=== PATIENT | female | born 1950 | race Hispanic/Latino ===

== ENCOUNTER 2017-12-17 10:34 | Inpatient (IN) | payer OTHER, MEDICARE ==
[~2017-12-17] VITALS: Ht 165.1 cm; Wt 92.1 kg
[~2017-12-17 10:34] MED LIST: AMLO5TAB5 PO; ASPI-1146 PO; CETI10TA57 PO; DICY20TA11 PO; EZET10 PO; GLIM1TAB2 PO; LEVO100T12 PO; LOSA100T29 PO; METH500T6 PO; NITR0.4T SL; OMEP20CA10 PO; ROSU5TAB PO; [UNRECOGNIZED DRUG - OTHER] PO
[2017-12-17 11:16] LABS: BASOPHILS % (AUTO) 1.2 % (0.0-5.0); EOSINOPHILS % (AUTO) 0.2 % (0.0-8.0); LYMPHOCYTES % (AUTO) 16.9 % (21.0-51.0); MEAN CORPUSCULAR HGB CONC 34.3 g/dL (32.0-36.0); MEAN CORPUSCULAR VOLUME 84.5 fL (79-99); MONOCYTES % (AUTO) 12.2 % (3.0-13.0); NEUTROPHILS % (AUTO) 69.5 % (40.0-77.0); PLATELET COUNT (AUTO) 256 K/uL (130-400); RED BLOOD CELL COUNT(AUTO) 4.38 MIL/uL (4.00-5.50); RED CELL DISTRIBUTION WIDTH 12.7 % (11.0-15.5); WHITE BLOOD COUNT (AUTO) 4.5 K/uL (4.8-10.8)
[2017-12-17] MEDS ORDERED: ONDANSETRON HCL 4 MG/2 ML VIAL ONE (11:17)
[2017-12-17] MEDS ORDERED: SODIUM CHLORIDE 0.9% 1000ML 1,000 ML IV ONE ×2 (11:17→12:38)
[2017-12-17] MEDS ORDERED: LABETALOL HCL 5 MG/ML 20ML VIAL IV ONE (11:18)
[2017-12-17] MEDS ORDERED: ACETAMINOPHEN EXTRA STRENGTH 500 MG TABLET ONE (11:18)
[2017-12-17 11:19] LABS: CARBON DIOXIDE 22 mmol/L (21-32); CHLORIDE 102 mmol/L (101-111); GLOMERULAR FILTR. RATE CALC 26 mL/min (>60); GLUCOSE,RANDOM 165 mg/dL (70-105); SODIUM SERUM 134 mmol/L (136-145); UREA NITROGEN, BLOOD 28 mg/dL (7-18)
[2017-12-17] MEDS ORDERED: MORPHINE SULFATE 4 MG/1ML SYG ONE (11:19)
[2017-12-17 11:22] LABS: CRP QUANTITATIVE 45.8 mg/L (0.00-9.0)
[2017-12-17 11:28] LABS: INR 0.99 (0.85-1.15); PARTIAL THROMBOPLASTIN TIME 28.4 SEC (26.3-35.5); PROTHROMBIN TIME 10.4 SEC (9.6-11.6)
[2017-12-17 11:36] LABS: ALANINE AMINOTRANSFERASE 66 U/L (12-78); ALBUMIN 3.9 g/dL (3.5-5.0); ASPARTATE AMINOTRANSFERASE 65 U/L (10-37); BILIRUBIN,TOTAL 0.3 mg/dL (0.2-1.0); CREATINE KINASE MB 2.2 ng/mL (0.5-3.6); MYOGLOBIN 368 ng/mL (10-92); TOTAL PROTEIN, SERUM 8.4 g/dL (6.0-8.3); TROPONIN I < 0.04 ng/mL (0.00-0.06)
[2017-12-17 11:38] LABS: CREATINE KINASE, TOTAL 497 U/L (21-232)
[2017-12-17 11:48] LABS: APPEARANCE,URINE Clear (CLEAR); BILIRUBIN,URINE Negative (NEGATIVE); COLOR,URINE Dark Yellow (YELLOW); GLUCOSE, URINE (UA) Negative (NEGATIVE); KETONES,URINE Negative (NEGATIVE); LEUKOCYTE ESTERASE ,URINE Negative (NEGATIVE); NITRATE,URINE Negative (NEGATIVE); OCCULT BLOOD,URINE Negative (NEGATIVE); PH,URINE 6.5 (5.0-8.0); PROTEIN,URINE Negative (NEGATIVE); UROBILINOGEN,URINE 0.2 mg/dL (0.2-1.0)
[2017-12-17] MEDS ORDERED: CEFTRIAXONE SODIUM 2 GM VIAL ONE (11:49)
[2017-12-17] MEDS ORDERED: SODIUM CHLORIDE 0.9% 100 ML IV ONE (11:49)
[2017-12-17 11:58] LABS: BACTERIA,URINE Rare /HPF (None Seen); RBC,URINE 0-1 /HPF (0-1); WBC,URINE 0-1 /HPF (0-1)
[2017-12-17 11:59] LABS: SQUAMOUS EPITHELIAL CELL,UR Rare /HPF (0-2)
[2017-12-17] MEDS ORDERED: FAMOTIDINE/PF 20 MG/2 ML VIAL IV ONE (12:39)
[2017-12-17] MEDS: SODIUM CHLORIDE 0.9% 1000ML 1,000 ML IV SCH (16:15)
[2017-12-17] MEDS ORDERED: ACETAMINOPHEN 325 MG TAB ONE (17:58)
[2017-12-18] MEDS ORDERED: MORPHINE SULFATE 4 MG/1ML SYG ONE (00:58)
[2017-12-18] MEDS ORDERED: ACETAMINOPHEN 325 MG TAB ONE ×2 (01:07→09:42)
[2017-12-18] MEDS: SODIUM CHLORIDE 0.9% 1000ML 1,000 ML IV SCH ×2 (05:35→18:55)
[2017-12-18 05:36] LABS: HEMATOCRIT 33.7 % (36-48); MEAN CORPUSCULAR HEMOGLOBIN 29.3 pg (27.0-33.0); MEAN CORPUSCULAR HGB CONC 34.5 g/dL (32.0-36.0); MEAN CORPUSCULAR VOLUME 84.9 fL (79-99); PLATELET COUNT (AUTO) 250 K/uL (130-400); RED BLOOD CELL COUNT(AUTO) 3.97 MIL/uL (4.00-5.50); RED CELL DISTRIBUTION WIDTH 12.8 % (11.0-15.5); WHITE BLOOD COUNT (AUTO) 6.1 K/uL (4.8-10.8)
[2017-12-18 05:44] LABS: CREATININE 1.7 mg/dL (0.5-1.5)
[2017-12-18] MEDS ORDERED: FAMOTIDINE 20MG TAB 20 MG TAB ONE (07:36)
[2017-12-18] MEDS ORDERED: ENOXAPARIN SODIUM 30 MG/0.3 ML SQ ONE (07:37)
[2017-12-18] MEDS: ENOXAPARIN SODIUM 30 MG/0.3 ML SQ SCH ×2 (09:00→20:09)
[2017-12-18] MEDS ORDERED: CEFTRIAXONE SODIUM 1 GM IVP SCH (09:00)
[2017-12-18] MEDS: FAMOTIDINE 20MG TAB 20 MG TAB PO SCH (09:00)
[2017-12-18 10:15] VITALS: BP 162/88
[2017-12-18 11:00] VITALS: BP 141/81
[2017-12-18] MEDS ORDERED: LEVOFLOXACIN 500 MG/D5W 100 ML 100 ML IV SCH (11:00)
[2017-12-18] MEDS: METRONIDAZOLE 500MG/100ML BAG 100 ML IV SCH ×2 (12:36→20:09)
[2017-12-18 15:00] VITALS: BP 146/89
[2017-12-18] MEDS: ACETAMINOPHEN 325 MG TAB PO PRN (15:51)
[2017-12-18 20:00] VITALS: BP_SYST 128; BP_SYST 137; BP_DIAS 68; BP_DIAS 80
[2017-12-18] MEDS: MORPHINE SULFATE 4 MG/1ML SYG IV PRN (20:14)
[2017-12-18 23:52] VITALS: BP 142/84
[2017-12-19] MEDS: SODIUM CHLORIDE 0.9% 1000ML 1,000 ML IV SCH ×2 (01:30→21:36)
[2017-12-19] MEDS: METRONIDAZOLE 500MG/100ML BAG 100 ML IV SCH ×2 (03:07→12:42)
[2017-12-19 04:00] VITALS: BP 152/87
[2017-12-19] MEDS: ACETAMINOPHEN 325 MG TAB PO PRN (04:48)
[2017-12-19 05:16] LABS: MEAN CORPUSCULAR HEMOGLOBIN 28.8 pg (27.0-33.0); MEAN CORPUSCULAR HGB CONC 33.8 g/dL (32.0-36.0); MEAN CORPUSCULAR VOLUME 85.2 fL (79-99); PLATELET COUNT (AUTO) 258 K/uL (130-400); RED BLOOD CELL COUNT(AUTO) 3.88 MIL/uL (4.00-5.50); RED CELL DISTRIBUTION WIDTH 12.8 % (11.0-15.5); WHITE BLOOD COUNT (AUTO) 5.5 K/uL (4.8-10.8)
[2017-12-19 05:24] LABS: CREATININE 1.6 mg/dL (0.5-1.5); MAGNESIUM 1.8 mg/dL (1.80-2.40); POTASSIUM 4.3 mmol/L (3.5-5.1)
[2017-12-19 07:00] VITALS: BP 141/82
[2017-12-19] MEDS: ENOXAPARIN SODIUM 30 MG/0.3 ML SQ SCH ×2 (09:54→21:30)
[2017-12-19] MEDS: FAMOTIDINE 20MG TAB 20 MG TAB PO SCH (09:55)
[2017-12-19] MEDS: MORPHINE SULFATE 4 MG/1ML SYG IV PRN ×2 (09:56→23:25)
[2017-12-19 11:00] VITALS: BP 167/87
[2017-12-19] MEDS ORDERED: ISOS30TA6 PO (12:38)
[2017-12-19] MEDS ORDERED: LABE100T5 PO (12:38)
[2017-12-19] MEDS ORDERED: LEVO100T12 PO (12:38)
[2017-12-19] MEDS ORDERED: ASPI-1197 PO (12:38)
[2017-12-19] MEDS ORDERED: EZET10TA26 PO (12:38)
[2017-12-19] MEDS ORDERED: ROSU5TAB11 PO (12:38)
[2017-12-19] MEDS ORDERED: MIRT7.5T11 PO (12:38)
[2017-12-19] MEDS ORDERED: ICOS1CAP PO (12:38)
[2017-12-19] MEDS ORDERED: FENO135C4 PO (12:38)
[2017-12-19] MEDS ORDERED: GABA-531 PO (12:38)
[2017-12-19] MEDS ORDERED: PANT40TA25 PO (12:38)
[2017-12-19] MEDS ORDERED: GLIM1TAB2 PO (12:38)
[2017-12-19] MEDS ORDERED: ONDANSETRON HCL 4 MG/2 ML VIAL ONE (13:42)
[2017-12-19] MEDS ORDERED: ONDANSETRON HCL 4 MG/2 ML VIAL IVP PRN (13:45)
[2017-12-19 15:00] VITALS: BP 162/97
[2017-12-19] MEDS ORDERED: KETOROLAC TROMETHAMINE 30MG/ML IV SCH (16:30)
[2017-12-19 17:18] LABS: THYROID STIMULATING HORMONE 2.81 uIU/mL (0.36-3.74)
[2017-12-19] MEDS: LABETALOL HCL 100 MG TABLET PO SCH ×2 (18:21→21:00)
[2017-12-19 19:55] VITALS: BP 141/86
[2017-12-19] MEDS ORDERED: GABAPENTIN 300 MG CAPSULE PO SCH (21:00)
[2017-12-19] MEDS ORDERED: ATORVASTATIN CALCIUM 10 MG TABLET PO SCH (21:00)
[2017-12-19] MEDS ORDERED: MIRTAZAPINE 15 MG TABLET PO SCH (21:00)
[2017-12-19] MEDS: ICOSAPENT ETHYL 2 GM PO SCH (21:00)
[2017-12-19] MEDS: GLIMEPIRIDE 2 MG TABLET PO SCH (21:29)
[2017-12-19 23:45] VITALS: BP 130/75
[2017-12-20 04:00] VITALS: BP 122/61
[2017-12-20 07:43] VITALS: BP 138/76
[2017-12-20] MEDS ORDERED: FENOFIBRIC ACID 135 MG PO SCH (08:00)
[2017-12-20] MEDS ORDERED: ISOSORBIDE MONO 30MG TAB SR PO SCH (09:00)
[2017-12-20] MEDS ORDERED: ASPIRIN 81MG TAB.CHEW PO SCH (09:00)
[2017-12-20] MEDS ORDERED: LOSARTAN 100 MG TABLET PO SCH (09:00)
[2017-12-20] MEDS: ICOSAPENT ETHYL 2 GM PO SCH (09:00)
[2017-12-20] MEDS ORDERED: LEVOTHYROXINE 100 MCG TABLET PO SCH (09:00)
[2017-12-20] MEDS ORDERED: PANTOPRAZOLE SODIUM 40 MG TABLET.DR PO SCH (09:00)
[2017-12-20] MEDS ORDERED: EZETIMIBE 10 MG TAB PO SCH (09:00)
[2017-12-20] MEDS: LABETALOL HCL 100 MG TABLET PO SCH (09:11)
[2017-12-20] MEDS: ACETAMINOPHEN 325 MG TAB PO PRN (09:11)
[2017-12-20] MEDS: GLIMEPIRIDE 2 MG TABLET PO SCH (09:12)
[2017-12-20] MEDS: ENOXAPARIN SODIUM 30 MG/0.3 ML SQ SCH (09:12)
[2017-12-20] MEDS: FAMOTIDINE 20MG TAB 20 MG TAB PO SCH (09:13)
[2017-12-20 11:21] VITALS: BP 119/71
[2017-12-20 16:15] VITALS: BP 166/76
[2017-12-25 15:26] LABS: ROCKY MT SPOTTED FEVER IGG <1:64 (Neg:<1:64); TYPHUS FEVER AB IGG <1:64 (Neg:<1:64)
== END 2017-12-20 18:48 | disposition home or self-care (01) | DRG 391 ==
LOC: EDH 10:34 → EDHIP 13:00 → 4CH 12-18 09:35
PROVIDERS: ADMIT Family Medicine; ATTEND Family Medicine
DX: K52.9 Noninfective gastroenteritis and colitis, unspecified (principal); N17.0 Acute kidney failure with tubular necrosis; N39.0 Urinary tract infection, site not specified; E86.0 Dehydration; E11.9 Type 2 diabetes mellitus without complications; I10 Essential (primary) hypertension; E78.5 Hyperlipidemia, unspecified; E03.9 Hypothyroidism, unspecified; F41.9 Anxiety disorder, unspecified; E66.9 Obesity, unspecified; Z83.3 Family history of diabetes mellitus; Z82.49 Family history of ischemic heart disease and other diseases of the circulatory system; Z79.84 Long term (current) use of oral hypoglycemic drugs; Z79.899 Other long term (current) drug therapy; Z68.33 Body mass index [BMI] 33.0-33.9, adult
CPT/HCPCS: 36415; 70551; 71045; 74176; 80048; 80053; 81001; 82550; 82553; 82948; 83605; 83690; 83735; 83874; 84439; 84443; 84481; 84484; 85025; 85027; 85610; 85730; 86000; 86038; 86140; 86215; 86235; 86431; 86757; 87040; 87088; 87507; 87633; 87804; 87880; 93005; 99291; J0696; J1650; J1885; J1956; J2270; J2405; J3490; J7030

== ENCOUNTER 2021-07-17 16:22 | Emergency (ER) | payer OTHER, MEDICARE ==
[~2021-07-17] VITALS: Ht 152.4 cm; Wt 72.6 kg
[~2021-07-17 16:22] MED LIST changes: +ASPI-1197 PO; -DICY20TA11 PO; +DICY20TA3 PO; -EZET10 PO; +EZET10TA13 PO; +EZET10TA48 PO; +FENO135C4 PO; +GABA-531 PO; +GLIM1TAB18 PO; -GLIM1TAB2 PO; +ICOS1CAP PO; +ISOS30TA92 PO; +LABE100T5 PO; -LOSA100T29 PO; +LOSA100T58 PO; +METH-811 PO; -METH500T6 PO; +MIRT7.5T11 PO; -OMEP20CA10 PO; +OMEP20CA12 PO; +PANT40TA54 PO; +ROSU5TAB12 PO
[2021-07-17] MEDS ORDERED: HYDROCODONE/ACETAMINOPHEN 5/325 MG TAB PO ONE (16:30)
[2021-07-17] MEDS ORDERED: KETOROLAC 30MG VIAL (30MG/ML) IM ONE (16:30)
[2021-07-17] MEDS ORDERED: CYCL10TA16 PO (17:14)
[2021-07-17] MEDS ORDERED: DICL20GE TP (17:14)
[2021-07-17 17:33] VITALS: BP 158/87
== END 2021-07-17 17:37 | disposition home or self-care (01) ==
LOC: EDH 16:22
DX: M25.552 Pain in left hip (principal); M25.511 Pain in right shoulder; M54.50 Low back pain, unspecified; E11.9 Type 2 diabetes mellitus without complications; E78.00 Pure hypercholesterolemia, unspecified; I10 Essential (primary) hypertension; Z79.1 Long term (current) use of non-steroidal anti-inflammatories (NSAID); Z79.82 Long term (current) use of aspirin; Z79.899 Other long term (current) drug therapy
CPT/HCPCS: 72100; 73030; 73502

== ENCOUNTER 2024-03-04 09:25 | Emergency (ER) | payer OTHER, MEDICARE ==
[~2024-03-04] VITALS: Ht 162.6 cm; Wt 90.7 kg
[~2024-03-04 09:25] MED LIST changes: +ACET-2079 PO; +CYCL10TA16 PO; +DICL20GE TP; -EZET10TA13 PO; +EZET10TA81 PO; -GLIM1TAB18 PO; +GLIM1TAB56 PO; -LABE100T5 PO; +LABE100T7 PO; -LOSA100T58 PO; +LOSA100T59 PO; +METH4TAB3 PO; -ROSU5TAB12 PO; +ROSU5TAB43 PO
[2024-03-04 09:40] VITALS: BP 172/90; PULSE 73; RESP 17; O2SAT 96
[2024-03-04] MEDS: ONDANSETRON 4MG INJ IVP ONE (10:34)
[2024-03-04] MEDS: MORPHINE 2 MG SYG IM ONE (10:35)
== END 2024-03-04 11:03 | disposition home or self-care (01) ==
LOC: EDH 09:25
DX: M79.605 Pain in left leg (principal); M79.604 Pain in right leg; E11.40 Type 2 diabetes mellitus with diabetic neuropathy, unspecified; G89.29 Other chronic pain; M54.50 Low back pain, unspecified; E11.22 Type 2 diabetes mellitus with diabetic chronic kidney disease; I12.9 Hypertensive chronic kidney disease with stage 1 through stage 4 chronic kidney disease, or unspecified chronic kidney disease; N18.9 Chronic kidney disease, unspecified; E78.00 Pure hypercholesterolemia, unspecified; F41.9 Anxiety disorder, unspecified; M19.90 Unspecified osteoarthritis, unspecified site; Z79.82 Long term (current) use of aspirin; Z79.899 Other long term (current) drug therapy
CPT/HCPCS: 99284; 96374; 96372; J2270; J2405

== ENCOUNTER → 2024-10-23 | Outpatient (CLI) | payer OTHER, MEDICARE ==
[~2024-10-23] MED LIST changes: -ROSU5TAB43 PO; +ROSU5TAB51 PO
--- NOTE | 2024-10-23 11:50 | HMCIMG ---
CT ABDOMEN/PELVIS W/O CONTRAST HISTORY: Lower abdominal pain COMPARISON: None TECHNIQUE: Multiple sequential axial images of the abdomen and pelvis were obtained from the dome of the diaphragm through symphysis pubis. Patient was not given contrast through intravenous route. Oral contrast was given. FINDINGS: No pleural effusion is seen bilaterally. There is no evidence of parenchymal disease or pulmonary nodule of the visualized lower lungs. Postop changes are seen with orthopedic fixation plates and screws at T12, L1 and L2. Compression fracture is seen at L1 with 80% loss of height. A 1 anterolisthesis is seen at the L4-5 level. Degenerative changes of the thoracolumbar spine are present. The heart is not enlarged. No bowel obstruction is seen. The liver, spleen, adrenal glands and pancreas are unremarkable. There is no evidence of hydronephrosis bilaterally. No evidence of renal stone is seen. Fecal material is seen in the colon. There are normal size retroperitoneal and mesenteric lymph nodes. No ascites is seen. Atherosclerotic changes are present. Pelvic sidewalls are symmetric bilaterally. Bladder is moderately distended. Degenerative changes with osteophytes formations are seen in the pubic symphysis more on the left. IMPRESSION: 1. No acute findings. CT was performed with one or more following dose reduction techniques: automated exposure control, adjustment of the mA and kv according to patient's size, or use of a iterative reconstruction technique.
== END | disposition home or self-care (01) ==
LOC: RAH 08:56
PROVIDERS: ATTEND Internal Medicine Gastroenterology
DX: S32.010A Wedge compression fracture of first lumbar vertebra, initial encounter for closed fracture (principal); R10.30 Lower abdominal pain, unspecified; M43.16 Spondylolisthesis, lumbar region; I70.0 Atherosclerosis of aorta; M47.815 Spondylosis without myelopathy or radiculopathy, thoracolumbar region; X58.XXXA Exposure to other specified factors, initial encounter; Y93.89 Activity, other specified; Y92.89 Other specified places as the place of occurrence of the external cause; Y99.8 Other external cause status
CPT/HCPCS: 74176

== ENCOUNTER → 2025-03-11 | Outpatient (CLI) | payer OTHER, MEDICARE ==
[~2025-03-11] MED LIST changes: -AMLO5TAB5 PO; +AMLO5TAB6 PO
--- NOTE | 2025-03-12 08:41 | HMCIMG ---
EXAMINATION: ULTRASOUND OF THE ABDOMEN (LIMITED) WITH COLOR DOPPLER. CLINICAL HISTORY: Pain. COMPARISON: CT abdomen and pelvis without contrast dated 10/23/2024. TECHNIQUE: Real-time grayscale ultrasound images of the abdomen. In addition, color Doppler is medically necessary to perform in order to evaluate vascularity and blood flow. FINDINGS: Liver: Normal in caliber, the right hepatic lobe measures 13.3 cm in the craniocaudal dimension. There is increased echogenicity of the hepatic parenchyma. There is no focal hepatic abnormality or intrahepatic biliary ductal dilatation. There is normal spectral Doppler of the main portal vein. Gallbladder: Within normal limits with normal wall thickness (0.3 cm). No hyperemia or pericholecystic free fluid. There is no cholelithiasis. There is ring down artifact. Common bile duct is normal in caliber, measuring 0.4 cm. Pancreas: Normal in caliber and echotexture. No calcification or dilated pancreatic duct. The right kidney is normal in caliber, the right kidney measures 9.4 x 4.6 x 3.8 cm in craniocaudal, AP, and transverse dimensions respectively. There is normal renal cortical thickness, and cortical echogenicity. There is no renal calculus or hydronephrosis. IMPRESSION: Hepatic steatosis. Ring down artifact in the gallbladder may reflect focal adenomyomatosis. In prior CT study gallbladder adenomyomatosis is not visualized. /[place]
== END | disposition home or self-care (01) ==
LOC: RAH 07:36
PROVIDERS: ATTEND Surgery
DX: K76.0 Fatty (change of) liver, not elsewhere classified (principal); R10.11 Right upper quadrant pain; K82.9 Disease of gallbladder, unspecified; R10.9 Unspecified abdominal pain
CPT/HCPCS: 76705

== ENCOUNTER → 2025-03-17 | Outpatient (CLI) | payer OTHER, MEDICARE ==
[~2025-03-17] MED LIST changes: -EZET10TA48 PO; +EZET10TA80 PO
--- NOTE | 2025-03-20 08:10 | HMCIMG ---
Exam: Hepatobiliary scan. Comparison: None. History: Right upper quadrant abdominal pain. Findings: After administration of 5.6 mCi of technetium 99 Mebrofenin IV, images are obtained over the next 60 min at 1-minute intervals. This demonstrates visualization of activity in the liver, which proceeds into the biliary tree, gallbladder, and proximal small bowel. Following the administration of 2.71 mcg Sincalide IV over 30 min with additional images 1at 20 sec increments, was performed for 30 min. The Gallbladder ejection fraction is 92% (abnormal < 38%). Symptoms of administration: None. IMPRESSION: Unremarkable hepatobiliary scan with a normal gallbladder ejection fraction of 92%. /[place]
== END | disposition home or self-care (01) ==
LOC: RAH 07:09
PROVIDERS: ATTEND Surgery
DX: R10.11 Right upper quadrant pain (principal)
CPT/HCPCS: 78227; A9537

== ENCOUNTER 2025-05-08 06:40 | Observation (INO) | payer OTHER, MEDICARE ==
[2025-05-04 10:16] VITALS: BP 136/56; PULSE 67; RESP 18; TEMP 97.3
--- NOTE | 2025-05-04 10:21 | EKG ---
[facility] Test Date: 2025-05-04 Test Time: 10:00:54 Pat Name: ANGELO GREEN Department: [facility] Room: Gender: F Technology Intern: [id number] : 1950 Requested By: JIMY GONZALES Order Number: [id number] Reading MD: Arabella Balbuena Measurements Intervals [place] Rate: 65 P: 38 [place]: 188 QRS: -23 QRSD: 96 T: 61 QT: 396 QTc: 413 Interpretive Statements Sinus rhythm Compared to ECG 12/17/2017 10:58:17 No significant changes Electronically Signed On 05-04-2025 12:11:00 CDT by Arabella Balbuena Please click the below link to view image of tracing.
[2025-05-04 10:24] LABS: IMMATURE GRANULOCYTE ABSOLUTE 0.02 K/uL (0-1); NUCLEATED RED BLOOD CELLS 0.0 % (0.0-0.19); PLATELET COUNT (AUTO) 292 K/uL (130-400); RED BLOOD CELL COUNT(AUTO) 4.42 MIL/uL (4.00-5.50); RED CELL DISTRIBUTION WIDTH 12.8 % (11.0-15.5); WHITE BLOOD COUNT (AUTO) 5.5 K/uL (4.8-10.8)
[2025-05-04 10:35] LABS: INR 0.98 (0.85-1.15)
[2025-05-04 10:36] LABS: APPEARANCE,URINE CLEAR (CLEAR); GLUCOSE, URINE (UA) >=1000 mg/dL (NEGATIVE); LEUKOCYTE ESTERASE ,URINE NEGATIVE Leu/uL (NEGATIVE); NITRATE,URINE NEGATIVE (NEGATIVE); OCCULT BLOOD,URINE NEGATIVE (NEGATIVE)
[2025-05-04 10:39] LABS: ASPARTATE AMINOTRANSFERASE 22.0 U/L (10-37); CREATININE 1.6 mg/dL (0.5-1.0); GLOMERULAR FILTR. RATE CALC 33.0 mL/min (>90); GLUCOSE,RANDOM 146.0 mg/dL (70-105); SODIUM SERUM 138.0 mmol/L (136-145); TOTAL PROTEIN, SERUM 7.2 g/dL (6.0-8.3); UREA NITROGEN, BLOOD 38.0 mg/dL (7-18)
[2025-05-04 11:22] LABS: ADD UA MICROSCOPIC YES; SQUAMOUS EPITHELIAL CELL,UR Few /HPF (0-2)
[~2025-05-08] VITALS: Ht 162.6 cm; Wt 87.1 kg
[2025-05-08] VITALS (25 sets, daily range): BP systolic 113–179; BP diastolic 45–95; PULSE 60–101; RESP 13–18; TEMP 97–98.6; O2SAT 95–97
[~2025-05-08 06:40] MED LIST changes: -ACET-2079 PO; -ASPI-1146 PO; -CYCL10TA16 PO; -DICL20GE TP; +LABE-9 PO; -LABE100T7 PO; -LOSA100T59 PO; +MELO-106 PO; -METH-811 PO; -METH4TAB3 PO; -NITR0.4T SL; -OMEP20CA12 PO; -ROSU5TAB PO; -[UNRECOGNIZED DRUG - OTHER] PO
[2025-05-08] MEDS: 0.9%NACL 1000ML 1,000 ML IV ONE (06:51)
[2025-05-08] MEDS: INDOCYANINE GREEN 25 MG VIAL IJ ONE ×2 (08:02→08:44)
[2025-05-08] MEDS ORDERED: PROMETHAZINE HCL 25 MG/ML 1ML AMPULE IM PRN (08:30)
[2025-05-08] MEDS ORDERED: MIDAZOLAM HCL 1 MG/ML 2ML VIAL ONE (08:52)
[2025-05-08] MEDS ORDERED: LIDOCAINE PF 100MG/5ML (2%) SYRINGE 5ML ONE (08:52)
[2025-05-08] MEDS ORDERED: SUCCINYLCHOLINE CHLORIDE 20 MG/ML 10 ML VIAL ONE (08:52)
[2025-05-08] MEDS ORDERED: GLYCOPYRROLATE 0.2 MG/ML 5 ML VIAL ONE (09:17)
[2025-05-08] MEDS ORDERED: NEOSTIGMINE METHYLSULFATE 1MG/ML IV ONE (09:49)
--- NOTE | 2025-05-08 11:20 | NUR ---
PT C/0 NOT WANTING TO GO HOME HAS NOBODY TO STAY WITH HER OVERNIGHT ONLY THE PROVIDER WHICH IS THERE DURING THE DAY , AND SHE DOES NOT FEEL SAFE STAYING HOME BY HERSELF WILL MAKE AWARE TO DR GONZALES
--- NOTE | 2025-05-08 11:44 | NUR ---
PT VOIDED 200 ML CLEAR URINE TOLERATING PO FLUIDS WELL
--- NOTE | 2025-05-08 11:54 | OP ---
Operative Note: DATE OF PROCEDURE: 05/08/25 SURGEON: JIMY GONZALES MD PROCEDURE PERFORMED: Robotic cholecystectomy. PREOPERATIVE DIAGNOSIS: Symptomatic cholelithiasis, POSTOPERATIVE DIAGNOSIS: same ANESTHESIA: General endotracheal. DEVICE LEFT IN PLACE: None. FLUIDS AND BLOOD PRODUCTS: Per anesthesia report. SPECIMENS REMOVED: Gallbladder. COMPLICATIONS: None immediate. PATIENT CONDITION: Stable. Blood loss: Minimal DESCRIPTION OF PROCEDURE: The patient was brought to the operating room and placed on the operating table in a supine position. Once general endotracheal anesthesia was achieved the patient's abdomen is prepped and draped in sterile fashion. Had then proceeded to create a transverse incision at the left upper quadrant at hathaway's point and under direct visualization went through the abdominal wall with a 5 mm Optiview entered the abdominal cavity and obtain a pneumoperitoneum. After obtaining pneumoperitoneum we placed under direct visualization to 8 mm trocars one in the far right flank and the other one in the right lower abdomen. I then switched out the 5 mm trocar in the left upper quadrant for 8 mm trocar. And then placed another 8 mm trocar in the left hemiabdomen to the left of the midline through the rectus muscle for the camera. Place the patient in reverse Trendelenburg and rotated to the left. Brought the robot over top of the patient right and docked the robot. There was significant amount of adhesions to the gallbladder that were taken down with the cautery with dissection. I then proceeded to retract the gallbladder from the fundus and infundibulum and started our dissection of the hilum. We bluntly dissected the hilum to expose the cystic duct and cystic artery and once we had a critical view for safety, which was confirmed with firefly technology. We proceeded to place two clips in the cystic duct p roximally and distally. We divided and then did the same with our cystic artery. We then proceeded to remove the gallbladder off the liver bed using Bovie cautery. Once this was done, we then proceeded to evaluate the liver bed for hemostasis. We made sure there was no bile leaks or any bleeding. I then proceeded to bring the 5 mm Endo-Catch bag through the lateral right por t. Placed the gallbladder within the bag and within the bag I proceeded to drain it. We then proceeded to remove the trocar in this area and dilated the muscle with a hemostat and proceeded to remove the gallbladder through this right lateral port. I then closed the muscle with a running 2-0 V lock suture. We then proceeded to undocked our all her instruments and the robot. Removed all the trocars from the abdominal wall confirmed no bleeding. the skin incisions were closed using 4-0 Monocryl running subcuticular fashion and Dermabond. a sterile dressing was applied. The patient tolerated the procedure well. All counts correct x2 at the end of the procedure JIMY GONZALES MD May 08, 2025 11:54
--- NOTE | 2025-05-08 11:55 | NUR ---
DR GONZALES TO PUT IN ORDERS FOR 24 HOURS STAY ON CPOE PT MADE AWARE WILL AWAIT FOR ORDERS AND ROOM ASSIGNMENT
--- NOTE | 2025-05-08 13:28 | NUR ---
pt report called to [facility] nurse to receive pt in [phone] pt taken via wc
--- NOTE | 2025-05-08 13:53 | NUR ---
patient arrived on med surg unit. no signs of distress or pain noted on arrival. will continue to monitor.
[2025-05-09] VITALS: BP 141/93; PULSE 83; RESP 18; TEMP 100.2
[2025-05-09 00:11] VITALS: BP 153/85; PULSE 98; RESP 18; TEMP 98.6
[2025-05-09 04:12] VITALS: BP 117/51; PULSE 78; RESP 17; TEMP 98.4
[2025-05-09 04:14] LABS: IMMATURE GRANULOCYTE ABSOLUTE 0.06 K/uL (0-1); NUCLEATED RED BLOOD CELLS 0.0 % (0.0-0.19); PLATELET COUNT (AUTO) 224 K/uL (130-400); RED BLOOD CELL COUNT(AUTO) 3.88 MIL/uL (4.00-5.50); RED CELL DISTRIBUTION WIDTH 12.8 % (11.0-15.5); WHITE BLOOD COUNT (AUTO) 14.9 K/uL (4.8-10.8)
[2025-05-09 08:02] VITALS: O2SAT 97
[2025-05-09 08:16] VITALS: BP 120/60; PULSE 71; RESP 18; TEMP 98.9
[2025-05-09] MEDS: 0.9% NACL 500ML IV.SOLN 500 ML IV ONE (10:00)
--- NOTE | 2025-05-09 10:34 | DS ---
Discharge Summary HOSPITAL COURSE SUMMARY: Status post robotic cholecystectomy. Had some nausea and vomiting yesterday today tolerated her liquid diet and is not nauseous. Has not had a bowel movement or passed gas yet. Has ambulated very little. Plan is for her to get 500 mL of NS. And then get her up out of bed and walking. If tolerating her diet and started passing gas okay to discharge later today. UNDERGROUND UTILITY LOCATOR(S): None PROCEDURES: Robotic cholecystectomy PROBLEM(S): As above DISCHARGE INSTRUCTIONS: Okay to go home in a full liquid diet and advance as tolerated at home. No lifting anything more than 15 lb for four weeks. Follow up in the office in two weeks. Home Meds Reported Medications Meloxicam (Meloxicam) 7.5 Mg Tablet, 7.5 MG PO HS, TAB 05/04/25 Ezetimibe (Ezetimibe) 10 Mg Tablet, 10 MG PO DAILY, TAB 12/19/17 Aspirin (Aspirin) 81 Mg Tab.chew, 81 MG PO DAILY, TAB.CHEW 12/19/17 Pantoprazole Sodium (Pantoprazole Sodium) 40 Mg Tablet.dr, 40 MG PO DAILY, TAB 12/19/17 Isosorbide Mononitrate (Isosorbide Mononitrate ER) 30 Mg Tab.er.24h, 30 MG PO DAILY, TAB 12/19/17 Fenofibric Acid (Choline) (Fenofibric Acid) 135 Mg Capsule.dr, 135 MG PO DAILYBKFST, CAP 12/19/17 Gabapentin (Gabapentin) 300 Mg Capsule, 300 MG PO HS, CAP 12/19/17 Levothyroxine Sodium (Levothyroxine Sodium) 100 Mcg Tablet, 100 MCG PO DAILY, TAB 12/19/17 Glimepiride (Glimepiride) 1 Mg Tablet, 1 MG PO BID, TAB 12/19/17 Rosuvastatin Calcium (Rosuvastatin Calcium) 5 Mg Tablet, 5 MG PO DAILY, TAB 12/19/17 Mirtazapine (Mirtazapine) 7.5 Mg Tablet, 7.5 MG PO HS, TAB 12/19/17 Labetalol HCl (Labetalol HCl) 100 Mg Tablet, 100 MG PO BID, TAB 12/19/17 Icosapent Ethyl (Vascepa) 1 Gm Capsule, 2 GM PO BID, CAP 12/19/17 Cetirizine HCl (Cetirizine HCl) 10 Mg Tablet, 10 MG PO HS, TAB 04/06/14 Dicyclomine HCl (Dicyclomine HCl) 20 Mg Tablet, 20 MG PO DAILY, TAB 04/06/14 Amlodipine Besylate (Norvasc) 5 Mg Tablet, 5 MG PO PM, TAB 04/06/14 Ezetimibe (Zetia) 10 Mg Tablet, 10 MG PO DAILY, TAB 04/06/14 Discontinued Reported Medications Omeprazole (Omeprazole) 20 Mg Capsule.dr, 20 MG PO DAILY, CAP 04/06/14 Glimepiride (Glimepiride) 1 Mg Tablet, 1 MG PO DAILY, TAB 04/06/14 Losartan Potassium (Losartan Potassium) 100 Mg Tablet, 100 MG PO DAILY, TAB 04/06/14 Rosuvastatin Calcium (Crestor) 5 Mg Tablet, 5 MG PO HS, TAB 04/06/14 Methocarbamol (Methocarbamol) 500 Mg Tablet, 500 MG PO QID PRN for PRN, TAB 04/06/14 Nitroglycerin (Nitrostat) 0.4 Mg Tab.subl, 0.4 MG SL AD, TAB.SL 04/06/14 Levothyroxine Sodium (Levothyroxine Sodium) 100 Mcg Tablet, 100 MCG PO DAILY, TAB 04/06/14 [Isorsobide] No Conflict Check, 30 MG PO DAILY 04/06/14 Aspirin (Ecotrin) 325 Mg Tablet.dr, 325 MG PO DAILY, TAB 04/06/14 Discontinued Scripts Acetaminophen with Codeine (Acetaminophen-Cod #3 Tablet) 300 Mg-30 Mg Tablet, 1 TAB PO Q4H PRN for Moderate to severe pain, #15 TAB 0 Refills Prov:JOEY BROWN MULTI SLIDE MACHINE TENDER 03/01/24 Methylprednisolone (Medrol) 4 Mg Tab.ds.pk, 4 MG PO AD, #1 UNIT Prov:JOEY BROWN MULTI SLIDE MACHINE TENDER 03/01/24 Cyclobenzaprine HCl (Flexeril) 10 Mg Tab, 10 MG PO BID, #40 TAB Prov:DILLAN MENJIVAR 07/17/21 Diclofenac Sodium (Voltaren Arthritis Pain) 20 Gm Gel..gram., 2 GM TP QIDP, #500 GM Prov:DILLAN MENJIVAR 07/17/21 JIMY GONZALES MD May 09, 2025 10:34
[2025-05-09 11:47] VITALS: BP 112/58; PULSE 69; RESP 20; TEMP 97.9
--- NOTE | 2025-05-09 14:51 | NUR ---
DISCHARGE INSTRUCTIONS GIVEN TO PT REGARDING FOLLOW UP AND EDUCATION. PT VERBALIZED UNDERSTANDING, IV CATHETER REMOVED AND INTACT. PT PENDING TRANSPORTATION TO ARRIVE. Addendum: 05/09/25 at 1545 by KIA BUI LVN LVN PT TAKEN DOWN STAIRS VIA WHEEL CHAIR NO FURTHER NOTES.
== END 2025-05-09 16:15 | disposition home or self-care (01) ==
LOC: DAH 06:40 → DAHIP 06:41 → 4BH 14:15
PROVIDERS: ADMIT Student in an Organized Health Care Education/Training Program; ATTEND Student in an Organized Health Care Education/Training Program
DX: K80.20 Calculus of gallbladder without cholecystitis without obstruction (principal); R10.11 Right upper quadrant pain; I10 Essential (primary) hypertension; E11.9 Type 2 diabetes mellitus without complications; E03.9 Hypothyroidism, unspecified; E78.00 Pure hypercholesterolemia, unspecified; Z79.899 Other long term (current) drug therapy; Z98.890 Other specified postprocedural states
CPT/HCPCS: 80053; 85025 ×2; 85610; 85730; 81001; 36415 ×2; 93005; 47562; 96374; 82948 ×3; 88304; 96375; A6260; G0378 ×28; A4223 ×2; A4600; A4663; J7030 ×2; J3010 ×3; J0330; J2270 ×2; J0665 ×2; J3490 ×3; J2003; J2250; J2704; J2710; J2371; J0690 ×2; C1769; A4930; A4215; A4213; A4222; A4221; A4216; J2405

== ENCOUNTER 2025-05-26 09:57 | Emergency (ER) | payer OTHER, MEDICARE ==
[~2025-05-26] VITALS: Ht 162.6 cm; Wt 83.9 kg
[2025-05-26] MEDS: TRIAMCINOLONE ACETONIDE 40 MG/ML 1ML VIAL IM ONE (10:55)
--- NOTE | 2025-05-26 11:00 | EKG ---
[facility] Test Date: 2025-05-26 Test Time: 10:47:52 Pat Name: ANGELO GREEN Department: ED Room: Gender: F Framing Mill Supervisor: [id number] : 1950 Requested By: COLLETTE DOTSON Order Number: [id number] Reading MD: Daniel Tejeda Measurements Intervals [place] Rate: 63 P: 42 [place]: 193 QRS: -16 QRSD: 92 T: 54 QT: 382 QTc: 392 Interpretive Statements Sinus rhythm Compared to ECG 05/04/2025 10:00:54 No significant changes Electronically Signed On 05-26-2025 19:23:01 FAST FOOD SERVER by Daniel Tejeda Please click the below link to view image of tracing.
[2025-05-26] MEDS ORDERED: METH-811 PO (12:23)
[2025-05-26] MEDS ORDERED: LIDO1ADH82 TP (12:23)
[2025-05-26 12:25] VITALS: BP 120/58; PULSE 67; RESP 17; TEMP 98.3; O2SAT 98
--- NOTE | 2025-05-26 12:25 | ERN ---
ED Note History of Present Illness Stated Complaint: SHOULDER PAIN Chief Complaint: Shoulder Injury/Pain Time Seen by MD: 10:16 Time Seen by Midlevel: 10:20 Dictation: 75-year-old female coming in with complaints right-sided neck pain radiating down to her right shoulder and arm. Patient states it has been going on for one month. Patient states she has already gone to the here PCP they gave her prescriptions for pain but today pain has worsened. Denies having any unilateral numbness, tingling, weakness. Denies any fever, nausea or vomiting. Denies any chest pain or chest discomfort. Allergies: Coded Allergies: No Known Drug Allergies (Unverified Allergy, Unknown, 04/06/14) Home Meds Active Scripts Methocarbamol (Methocarbamol) 500 Mg Tablet, 1 TAB PO TID for 3 Days, #9 TAB 0 Refills Prov:COLLETTE DOTSON [facility] 05/26/25 Lidocaine (Lidocaine) 4 % Adh..patch, 1 PATCH TP DAILY for 10 Days, #10 PATCH 0 Refills Prov:COLLETTE DOTSON [facility] 05/26/25 Reported Medications Meloxicam (Meloxicam) 7.5 Mg Tablet, 7.5 MG PO HS, TAB 05/04/25 Ezetimibe (Ezetimibe) 10 Mg Tablet, 10 MG PO DAILY, TAB 12/19/17 Aspirin (Aspirin) 81 Mg Tab.chew, 81 MG PO DAILY, TAB.CHEW 12/19/17 Pantoprazole Sodium (Pantoprazole Sodium) 40 Mg Tablet.dr, 40 MG PO DAILY, TAB 12/19/17 Isosorbide Mononitrate (Isosorbide Mononitrate ER) 30 Mg Tab.er.24h, 30 MG PO DAILY, TAB 12/19/17 Fenofibric Acid (Choline) (Fenofibric Acid) 135 Mg Capsule.dr, 135 MG PO DAILYBKFST, CAP 12/19/17 Gabapentin (Gabapentin) 300 Mg Capsule, 300 MG PO HS, CAP 12/19/17 Levothyroxine Sodium (Levothyroxine Sodium) 100 Mcg Tablet, 100 MCG PO DAILY, TAB 12/19/17 Glimepiride (Glimepiride) 1 Mg Tablet, 1 MG PO BID, TAB 12/19/17 Rosuvastatin Calcium (Rosuvastatin Calcium) 5 Mg Tablet, 5 MG PO DAILY, TAB 12/19/17 Mirtazapine (Mirtazapine) 7.5 Mg Tablet, 7.5 MG PO HS, TAB 12/19/17 Labetalol HCl (Labetalol HCl) 100 Mg Tablet, 100 MG PO BID, TAB 12/19/17 Icosapent Ethyl (Vascepa) 1 Gm Capsule, 2 GM PO BID, CAP 12/19/17 Cetirizine HCl (Cetirizine HCl) 10 Mg Tablet, 10 MG PO HS, TAB 04/06/14 Dicyclomine HCl (Dicyclomine HCl) 20 Mg Tablet, 20 MG PO DAILY, TAB 04/06/14 Amlodipine Besylate (Norvasc) 5 Mg Tablet, 5 MG PO PM, TAB 04/06/14 Ezetimibe (Zetia) 10 Mg Tablet, 10 MG PO DAILY, TAB 04/06/14 Past Medical History Past Medical History: Diabetes-Type II, High Cholesterol, Hypertension Additional Past Medical Hx: CKD Surgical History: Cholecystectomy History: Not Applicable Review of System Dictation Constitutional: Negative for fever,chills, and weight loss Eyes: Negative for injury, pain,redness, and discharge ENT: Negative for injury,pain or swelling Cardiovascular: Negative for chest pain, palpitations, and edema Respiratory: Negative for shortness of breath, cough, and wheezing, Abdomen/GI: Negative for abdominal pain, nausea, vomiting, diarrhea, and constipation Back: Negative for injury and pain : Negative for injury, bleeding and discharge MS/Extremity: Negative for injury and deformity, pain to right shoulder Skin: Negative for rash, and discoloration Neuro: Negative for headache, weakness, numbness, tingling, and seizure Psych: Negative for suicide ideation, homicidal ideation, and hallucinations Review of Systems: was completed Initial Vital Sign VS Vital Signs Date Time Temp Pulse Resp B/P (MAP) Pulse Ox O2 Delivery O2 Flow Rate FiO2 05/26/25 10:01 98.1 71 16 132/70 99 Room Air 0 05/26/25 10:38 21 Physical Exam Dictation General: awake, alert, NAD Head/Face: Normocephalic, atraumatic Eyes: PERRL, EOMI, vision at baseline ENT: oral cavity clear, TMs clear, no signs of infection Neck: Trachea midline, supple, no nuchal rigidity Cardiovascular: RRR, normal S1/S2, No MRGs, no JVD Respiratory: CTAB, no respiratory distress, No rales or wheezes Abdomen: Soft, non-tender, non-distended, normal bowel sounds, no guarding or rebound. Skin: Warm, dry, normal turgor, no rash MS/Extremity: Pulses equal, no cyanosis, neurovascular intact, FROM Neuro: COAx4, GCS 15, strength 5/5, CN 2-12 intact, normal cerebellar exam, normal gait, Psych: Normal behavior, mood, and affect normal Results (Laboratory/Radiology) Labs Reviewed?: Yes ED Course ED Course Orders Procedure Category Date Status Time Shoulder Comp 2+Vws Rt RAD 05/26/25 Resulted 10:29 12 Lead Ekg Tracing- EKG 05/26/25 Complete Technical 10:29 Methocarbamol PHA 05/26/25 Complete (Methocarbamol) 10:30 Ketorolac PHA 05/26/25 Complete Tromethamine 15mg/Ml 10:30 Tramadol Hcl (Ultram) PHA 05/26/25 Complete 10:30 Triamcinolone Acet PHA 05/26/25 Complete 40mg/Ml 1ml (Kenalog 10:30 Current Medications Medications (Trade) Dose Ordered Sig/Silvia Route PRN Reason Start Time Stop Time Status Last Admin Dose Admin Ketorolac Tromethamine (toRADol) 15 mg ONCE ONCE IM 05/26/25 10:30 05/26/25 10:37 DC 05/26/25 10:52 Methocarbamol (methoCARBamol) 1,000 mg ONCE ONCE PO 05/26/25 10:30 05/26/25 10:37 DC 05/26/25 10:56 Tramadol HCl (UltRAM) 50 mg ONCE ONCE PO 05/26/25 10:30 05/26/25 10:37 DC 05/26/25 10:57 Triamcinolone Acetonide (Kenalog 40) 40 mg ONCE ONCE IM 05/26/25 10:30 05/26/25 10:37 DC 05/26/25 10:55 Vital Signs Date Time Temp Pulse Resp B/P (MAP) Pulse Ox O2 Delivery O2 Flow Rate FiO2 05/26/25 12:25 98.2 67 17 120/58 98 Room Air* 0 21 05/26/25 10:38 98.1 65 18 123/60 Room Air* 0 21 05/26/25 10:01 98.1 71 16 132/70 99 Room Air 0 Medical Decision Making MDM MDM: 75-year-old female coming in with complaints right-sided neck pain radiating down to her right shoulder and arm. Denies any trauma. Patient states it has been going on for one month. Patient states she has already gone to the here PCP they gave her prescriptions for pain but today pain has worsened. Denies having any unilateral numbness, tingling, weakness. Denies any fever, nausea or vomiting. Denies any chest pain or chest discomfort. X- ray shows no acute finding. More than likely patient has pain is caused by cervical radiculopathy. Educated that she needs to follow up outpatient with her PCP for further management and evaluation. Discussed on red flag symptoms of when to return back to the ER. Patient verbalized understanding attending, answered all questions. Differential diagnosis: Go radiculopathy, musculoskeletal pain, shoulder dislocation Rationale: Tests considered and ordered secondary to shared decision making include: Previous outside records reviewed: Old ER visits. Risk of complication and/or morbidity or mortality of patient management: None Medications-Per medication reconciliation Need for hospitalization: Patient does not meet criteria for hospitalization. Need for emergency major/minor surgery: No There are no social concerns with this patient. Prescription drug management Prescriptions will include symptomatic care Patient's prior external medical records from other ER visits were reviewed by me as indicated. Prior testing and results from previous visits were reviewed. Prior tests were taken into account with medical decision making and resource utilization, independent historian/historians were used to obtain complete medical history. I independently interpreted the test that were performed, results were reviewed by me and considered findings on radiology if ordered. Medical management and examination interpretation discussions were had by me with other qualified healthcare professionals as indicated for the patient's care. DX & DISP Disposition: Discharge Departure Impression: Primary Impression: Shoulder pain Additional Impressions: Cervical radiculopathy, acute, Osteoarthritis Condition: Stable Scripts Methocarbamol (Methocarbamol) 500 Mg Tablet 1 TAB PO TID for 3 Days, #9 TAB 0 Refills Prov: DOTSON,COLLETTE COMMISSIONED FIRE OFFICER 05/26/25 Lidocaine (Lidocaine) 4 % Adh..patch 1 PATCH TP DAILY for 10 Days, #10 PATCH 0 Refills Prov: DOTSONHAYDEECOLLETTE COMMISSIONED FIRE OFFICER 05/26/25 Additional Instructions: seguir con vasquez doctor familiar de 1-2 soares. Referrals: FRAN ARREDONDO MD (PCP) Time of Disposition: 12:22 I have reviewed the case, and I agree with, Diagnosis and Plan COLLETTE DOTSON [facility] May 26, 2025 12:25
--- NOTE | 2025-05-26 12:35 | HMCIMG ---
EXAM: CR right Shoulder, 2 View. CLINICAL HISTORY: PAIN COMPARISON: None provided. FINDINGS: BONES: No acute fracture or aggressive appearing osseous lesion. JOINTS: No dislocation. Mild acromioclavicular and glenohumeral joint osteoarthritis. SOFT TISSUES: The soft tissues are unremarkable. IMPRESSION: No acute abnormality evident on examination of the right shoulder. No acute fracture or dislocation. /[place]
== END 2025-05-26 12:52 | disposition home or self-care (01) ==
LOC: EDH 09:57
DX: M54.12 Radiculopathy, cervical region (principal); M25.511 Pain in right shoulder; I12.9 Hypertensive chronic kidney disease with stage 1 through stage 4 chronic kidney disease, or unspecified chronic kidney disease; E11.22 Type 2 diabetes mellitus with diabetic chronic kidney disease; N18.9 Chronic kidney disease, unspecified; E78.00 Pure hypercholesterolemia, unspecified; M19.90 Unspecified osteoarthritis, unspecified site; Z79.82 Long term (current) use of aspirin; Z79.890 Hormone replacement therapy; Z79.899 Other long term (current) drug therapy; Z90.49 Acquired absence of other specified parts of digestive tract
CPT/HCPCS: 99284; 73030; 96372 ×2; 93005; J1885; J3301